=== PATIENT | female | born 1975 ===

== ENCOUNTER 2019-02-06 19:54 | Emergency (ER) | payer BC, OTHER ==
[2019-02-06 20:07] VITALS: RESP 18; BMI 49.4
[2019-02-06] MEDS ORDERED: DiphenhydrAMINE 50 mg/ml Inj IVP STA (21:02)
--- NOTE | 2019-02-06 21:14 | ED PDOC ---
HPI: General Adult Time Seen by Provider: 02/06/19 20:20 Chief Complaint (Nursing): Weakness/Neurological Deficit History Per: Patient, Family (sister) Additional Complaint(s): Pt. states since 01/28/2019 she's had numbness to all her fingers and toes and diffuse bodyaches. The following day she developed a gradual onset bitemporal headache associated with nausea. She went to [facility] ED where she had blood work, CT head w/ IV contrast, MRI brain, and a lumbar puncture. Pt. states she was informed that she had an "aneurysm" but other than that all the tests were normal. This week she f/u with Dr. Gill (PMD) who prescribed her amlodipine 5mg, HCTZ 12.5mg, and xanax 0.25mg which she has taken without any relief. Pt. states she has been taking Tylenol with temporary relief of headache but headache never goes away completely. States headache has been present since Sunday and has not worsened. Pt. states she does feel anxious and has a hx of anxiety. Denies chest pain, SOB, hemoptysis, abdominal pain, vomiting, diarrhea, fever, head injury, neck pain/stiffness. Past Medical History Reviewed: Historical Data, Nursing Documentation, Vital Signs Vital Signs: Last Vital Signs Temp 98.2 F 02/06/19 20:06 Pulse 129 H 02/06/19 20:06 Resp 18 02/06/19 20:06 BP 160/97 H 02/06/19 20:06 Pulse Ox 100 02/06/19 20:06 - Medical History PMH: Anxiety, HTN, Hypothyroidism - Surgical History Surgical History: Cholecystectomy, Tonsillectomy - Family History Family History: States: No Known Family Hx - Home Medications Home Medications: Ambulatory Orders Medication Instructions Recorded Metoclopramide [Reglan] 10 mg PO TID PRN #10 tab 02/07/19 - Allergies Allergies/Adverse Reactions: Allergies Allergy/AdvReac Type Severity Reaction Status Date / Time No Known Allergies Allergy Verified 02/06/19 20:07 Review of Systems ROS Statement: Except As Marked, All Systems Reviewed And Found Negative Neurological: Positive for: Headache Physical Exam - Physical Exam Appears: Positive for: Well, Non-toxic, No Acute Distress Head Exam: Positive for: ATRAUMATIC, NORMAL INSPECTION, NORMOCEPHALIC Skin: Positive for: Normal Color, Warm. Negative for: Rash Eye Exam: Positive for: Normal appearance, EOMI, PERRL. Negative for: Nystagmus ENT: Positive for: Normal ENT Inspection Neck: Positive for: Normal, Painless ROM, Supple Cardiovascular/Chest: Positive for: Tachycardia. Negative for: Murmur Respiratory: Positive for: Normal Breath Sounds. Negative for: Respiratory Distress Gastrointestinal/Abdominal: Positive for: Normal Exam, Soft. Negative for: Tenderness Neurological/Psych: Positive for: Awake, Alert, Oriented (x3), Mood/Affect (crying, seems anxious, easily consolable) - Laboratory Results Result Diagrams: 02/06/19 21:40 02/06/19 21:40 - ECG ECG: Positive for: Interpreted By Me ECG Rhythm: Positive for: Sinus Rhythm. Negative for: ST/T Changes Rate: 93 O2 Sat by Pulse Oximetry: 100 - Progress ED Course And Treament: Labs, EKG, Reglan 10mg IV, benadryl 50mg IV ordered. Condition: Re-examined, Improved (Sleeping comfortably. Reports good relief of headache and numbness. States she is feeling much better. Advised to f/u with PMD for further evaluation but is to return to ED immediately if symptoms worsen. ) Disposition - Clinical Impression Clinical Impression: Headache - Patient ED Disposition Is Patient to be Admitted: No - Disposition Referrals: [facility] [Outside] Disposition: Routine/Home Disposition Time: 23:00 Condition: IMPROVED Additional Instructions: FOLLOW UP WITH DR. GILL FOR FURTHER EVALUATION RETURN TO ED IMMEDIATELY IF SYMPTOMS WORSEN ANGELA STEWARD, thank you for letting us take care of you today. Your provider was Lakeshia Sharp MD and you were treated for NUMBNESS ON EXTREMIDIES,DIZZINESS. The emergency medical care you received today was directed at your acute symptoms. If you were prescribed any medication, please fill it and take as directed. It may take several days for your symptoms to resolve. Return to the Emergency Department if your symptoms worsen, do not improve, or if you have any other problems. Please contact your doctor or call one of the physicians/clinics you have been referred to that are listed on the Patient Visit Information form that is included in your discharge packet. Bring any paperwork you were given at discharge with you along with any medications you are taking to your follow up visit. Our treatment cannot replace ongoing medical care by a primary care provider outside of the emergency department. Thank you for allowing the [facility] team to be part of your care today. If you had an X-Ray or CT scan: A Radiologist will review the ED reading if any change in treatment is needed we will contact you. If you had a blood, urine, or wound culture: It will take several days for the results, if any change in treatment is needed we will contact you. If you had an STI test: It will take 48 hours for the results. Please call after 1 week if you have not heard back. Prescriptions: Metoclopramide [Reglan] 10 mg PO TID PRN #10 tab PRN Reason: headache or nausea Instructions: Headache, Adult (DC) Forms: [employer] ([place]), [facility] ED School/Work Excuse
[2019-02-06] MEDS ORDERED: DiphenhydrAMINE 50 mg/ml Inj ONE (21:37)
[2019-02-06 22:26] LABS: BASO # 0.1 K/uL (0.0-0.2); BASO % 0.5 % (0.0-2.0); EOS # 0.1 K/uL (0.0-0.7); EOS % 1.3 % (0.0-4.0); HEMOGLOBIN 13.7 g/dL (12.0-16.0); LYMPH # 2.1 K/uL (1.0-4.3); LYMPH % 18.2 % (20.0-40.0); MEAN CELL VOLUME 81.9 fl (81.0-99.0); MEAN CORPUSCULAR HEMOGLOBIN 27.2 pg (27.0-31.0); MEAN CORPUSCULAR HGB CONC 33.2 g/dL (33.0-37.0); MONO # 0.6 K/uL (0.0-0.8); MONO % 5.4 % (0.0-10.0); NEUT # 8.6 K/uL (1.8-7.0); NEUT % 74.6 % (50.0-75.0); RBC 5.04 Mil/uL (3.80-5.20); RED CELL DISTRIBUTION WIDTH 16.6 % (11.5-14.5); WHITE BLOOD COUNT 11.5 K/uL (4.8-10.8)
[2019-02-06 22:40] LABS: BLOOD UREA NITROGEN 13 mg/dl (7-17); CALCIUM 10.2 mg/dL (8.4-10.2); GFR NON-AFRICAN AMERICAN > 60
[2019-02-06 22:43] LABS: ALB/GLOB RATIO 1.2 (1.0-2.1); ALBUMIN 4.9 g/dL (3.5-5.0); ALT/SGPT 50 U/L (9-52); AST/SGOT 43 U/L (14-36)
[2019-02-06 23:08] LABS: T3 1.23 nmol/L (1.49-2.60)
[2019-02-07 00:06] VITALS: O2SAT 100
[2019-02-07 00:49] VITALS: BP 122/70; TEMP 98
[2019-02-07 05:38] VITALS: PULSE 93
--- NOTE | 2019-02-07 09:42 | CARD ---
APPROVED REPORT Date of service: 02/06/2019 EKG Measurement Heart [id number] <Conclusion> Normal sinus rhythm Normal ECG
== END 2019-02-07 00:10 | disposition home or self-care (01) ==
LOC: H.ER 19:54
DX: R51 Headache (principal); E03.9 Hypothyroidism, unspecified; F41.9 Anxiety disorder, unspecified; I10 Essential (primary) hypertension
CPT/HCPCS: 80053; 81025; 84436; 84439; 84443; 84481; 84484; 85025; 93005; 96374; 99285; J1200; J2765